=== PATIENT | male | born 1975 | race African-American/Black ===

== ENCOUNTER 2020-10-23 06:08 | Day surgery (SDC) | payer MEDICAID ==
[~2020-10-23] VITALS: Ht 180.3 cm; Wt 136.4 kg
[2020-10-23] MEDS ORDERED: ACETAMINOPHEN500 M1 PO (06:43)
[2020-10-23] MEDS ORDERED: NORVASC2.5 MG PO (06:44)
[2020-10-23] MEDS ORDERED: TENORMIN100 MG PO (06:45)
[2020-10-23] MEDS ORDERED: NORVASC10 MG PO (06:45)
[2020-10-23] MEDS ORDERED: BAYER CHEWABLE81 MG PO (06:45)
[2020-10-23] MEDS ORDERED: TUMS X-STR300 MG PO (06:46)
[2020-10-23] MEDS ORDERED: BENTYL 20 MG TA20 MG PO ×2 (06:47)
[2020-10-23] MEDS ORDERED: FERROUS SULFAT325 MG PO (06:48)
[2020-10-23] MEDS ORDERED: GLIPIZIDE10 MG PO (06:49)
[2020-10-23] MEDS ORDERED: COZAAR25 MG PO (06:50)
[2020-10-23] MEDS ORDERED: KEPPRA SOLU100 MG/ML PO (06:50)
[2020-10-23] MEDS ORDERED: GLUCOPHAGE1000 MG PO (06:50)
[2020-10-23] MEDS ORDERED: OMEPRAZOLE20 M1 PO (06:51)
[2020-10-23] MEDS ORDERED: NORTRIPTYLINE H50 MG PO (06:52)
[2020-10-23 07:03] LABS: ALBUMIN 3.8 g/dL (3.4-5.0); ANION GAP 17.6 mmol/L (8-16); BILIRUBIN - TOTAL 0.38 mg/dL (0.2-1.3); CALCIUM 9.3 mg/dL (8.5-10.1); CARBON DIOXIDE 21.3 mmol/L (21.0-32.0); CREATININE - SERUM 1.3 mg/dL (0.6-1.3); POTASSIUM - SERUM 3.9 mmol/L (3.5-5.1); PROTEIN - SERUM 8.2 g/dL (6.4-8.2)
[2020-10-23 07:05] VITALS: BP 125/86; Ht 180.3 cm; Wt 136.4 kg
[2020-10-23 07:11] LABS: BASOPHILS 0.4 % (0-2); EOSINOPHILS 2.2 % (0-7); HEMATOCRIT 42.2 % (42.0-54.0); HEMOGLOBIN 14.6 g/dL (13.5-17.5); IMMATURE GRANULOCYTES 0.2 % (0-5); LYMPHOCYTES 39.3 % (15-50); MCH 24.2 pg (26.0-34.0); MCHC 34.6 g/dL (31.0-37.0); MEAN PLATELET VOLUME 10.2 fL (7.4-10.4); NEUTROPHIL ABS# 2.35 10x3/uL (1.78-5.38); NEUTROPHILS 43.9 % (40-80); PLATELET COUNT 275 10x3/uL (130-400); RBC 6.03 10x6/uL (4.20-6.10); RDW 15.4 % (11.5-14.5); WBC 5.4 10x3/uL (4.8-10.8)
--- NOTE | 2020-10-23 12:01 | NUR ---
1153 AWAKE & ALERT. DRESSED. GIVEN DISCHARGE INFORMATION INCLUDING: MED REC., SHEET LISTING NSAIDS TO HOLD, & [facility] POST ENDOSCOPY D/C INSTRUCTIONS. COPIES OF LAB, H&P, PROGRESS NOTE SENT TO [facility]. PT VOICED UNDERSTANDING. TO [facility] VAN VIA WHEELCHAIR BY [facility] GUARDS X'S Ming CARRERA R.N.
--- NOTE | 2020-10-25 16:40 | HP ---
PATIENT: LINDY CAMPBELL MEDICAL RECORD: [id number] ACCOUNT: [id number] LOCATION:[facility] : 77 ADMISSION DATE: 10/23/20 PCP: No PCP HISTORY AND PHYSICAL EXAMINATION CHIEF COMPLAINT: He is here for endoscopy. HISTORY OF PRESENT ILLNESS: He was scheduled for lower endoscopy, but he has significant upper tract symptoms as well and would like to undergo an upper endoscopy. I think that is reasonable. The patient is on dicyclomine for irritable bowel syndrome. No history of Crohn disease. No history of ulcerative colitis. He does have a history of gastritis and at one time had Helicobacter pylori, which was treated with antibiotics. The patient has fecal occult blood positivity times 3. He has a history of diverticulitis. He has had a history of colon polyps as well and has had a polyp removed by Dr. Pierson in [place]. Currently not having any abdominal pain. He has a volume reflux and refluxes up into the back of his mouth at night. He has had no hematemesis. No dysphagia. He does have hematochezia. The risks, possible complications, alternatives of the procedure were explained to the patient. He elects to proceed. So we will plan on doing an upper endoscopy as well as a lower endoscopy on the patient. MEDICATIONS: [facility]. ALLERGIES: No known drug allergies. SOCIAL HISTORY: Nonsmoker. PAST MEDICAL AND SURGICAL HISTORY: Atrial fibrillation, hypertension, tol-[id number] diabetes mellitus. PHYSICAL EXAMINATION: GENERAL: The patient does not appear acutely ill. EARS: External ears appear normal. EYES: Extraocular movements are intact. NECK: Trachea is midline. CHEST: No intercostal retractions. PULMONARY: Nonlabored. No stridor. IMPRESSION: 1. History of gastritis. 2. History of Helicobacter pylori, in need of surveillance endoscopy to check for clearing of the Helicobacter pylori. 3. Gastroesophageal reflux. 4. History of colon polyps, in need of surveillance colonoscopy. 5. Fecal occult blood positivity. 6. Hematochezia. PLAN: Will be EGD with colonoscopy. TRANSINT:[id number] Voice Confirmation ID: [id number] DOCUMENT ID: [id number] HISTORY AND PHYSICAL [id number] LINDY CAMPBELL, KAE AMBROSE at [place] CC: [id number] DICTATION DATE: 10/23/20 0954 PIANO MOVER: 10/23/20 1041 [facility] 10/23/20 [facility] [address] [place] [address]
--- NOTE | 2020-10-25 16:40 | OP ---
PATIENT NAME: LINDY CAMPBELL MEDICAL RECORD: [id number] :77 LOCATION:D.OPS ADMISSION DATE: SURGEON: LEOPOLDO CLEMENTS MD DATE OF OPERATION: 10/23/2020 PREOPERATIVE DIAGNOSES: 1. Gastroesophageal reflux. 2. Irritable bowel syndrome. 3. History of H. pylori, in need of surveillance upper endoscopy to see if H. pylori has been eradicated. 4. Hematochezia. 5. History of colon polyps. POSTOPERATIVE DIAGNOSIS: 1. Gastroesophageal reflux. 2. Irritable bowel syndrome. 3. History of H. pylori, in need of surveillance upper endoscopy to see if H. pylori has been eradicated. 4. Hematochezia. 5. History of colon polyps. 6. Very large rectal veins leading to enlarged internal hemorrhoids, very likely the source of the patient's hematochezia. 7. Questionable flat polyp on the ileocecal valve. 8. Rectal polyp, sessile, 7-mm. 9. Pedunculated polyp, 1.4 cm. PROCEDURE: 1. Esophagogastroduodenoscopy with antral and distal esophageal biopsies. 2. Total colonoscopy to cecum. 3. Snare polypectomy x1. 4. Hot biopsy forceps polypectomies x2. SURGEON: Leopoldo Clements MD CORNER CUTTER MACHINE OPERATOR: None. BLOOD LOSS: Minimal. ANESTHESIA: IV sedation. COMPLICATIONS: None. The risks, possible complications, and alternatives to the procedure were explained to the patient. He elects to proceed. ENDOSCOPIC COURSE: The patient was conveyed to the endoscopy suite electively on 10/23/2020. IV sedation was induced by the anesthesia staff. A bite block was inserted. A gastroscope was inserted into the mouth. It was advanced easily into the hypopharynx. The esophagus was easily intubated as were the stomach and duodenum. Upon withdrawal, retroflexed and angulus views were obtained. Antral biopsies were obtained to check for H. pylori. Distal esophageal biopsies were obtained to check for Manuel's esophagus. The endoscope was then withdrawn under direct vision. The patient was turned 180 degrees and placed in the Cheung position. Digital OPERATIVE REPORT [id number] LINDY CAMPBELL rectal examination was performed. A colonoscope was inserted through the anus. It was easily advanced to the cecum. The prep was adequate. I withdrew the endoscope. The pullback was greater than 18-minute pullback. I dragged the folds. A combination of normal imaging and narrow band imaging were utilized. There was a flat lesion on the superior lip of the ileocecal valve and I am not sure if this represents a polyp or not. I did perform a hot biopsy forceps polypectomy procedure at this site. The polyp was about 1.8 cm in diameter. I continued to withdraw the endoscope. I identified a pedunculated polyp. This was removed in several pieces utilizing the snare polypectomy technique. Portions of the polyp were brought up through the polyp trap and portions were suctioned and brought out through the anus. I reintroduced the endoscope. There was no bleeding. There was a sessile polyp in the rectum, which was removed in its entirety utilizing the hot biopsy forceps polypectomy technique. A retroflex view was obtained in the rectum. I then unretroflexed the scope and removed it under direct vision. There is no need for the patient to follow up with me in the office unless he develops a complication related to this operative procedure. The patient would like to be placed back on dicyclomine for irritable bowel syndrome. He states that it was beneficial for him. I think that is likely a reasonable request. His next surveillance colonoscopy needs to take place in 3 years, which would be in September of 2023. If the patient needs a followup visit, we could do a telehealth visit or I could see the patient on one of my GI clinic days out at the [facility]. TRANSINT:[id number] Voice Confirmation ID: [id number] DOCUMENT ID: [id number] cc: Dr. Edda CLEMENTS, LEPOOLDO AMBROSE at 1640 CC: [id number] DICTATION DATE: 10/23/20 1125 BUTCHER HELPER: 10/23/20 1225 [facility] 10/23/20 [place] [address]
== END 2020-10-23 11:53 ==
LOC: D.OPS 06:08
PROVIDERS: Anesthesiology; ATTEND Surgery
DX: K21.9 Gastro-esophageal reflux disease without esophagitis (principal); K58.9 Irritable bowel syndrome, unspecified; K92.1 Melena; Z86.010 Personal history of colon polyps; K64.8 Other hemorrhoids; K63.5 Polyp of colon; K57.30 Diverticulosis of large intestine without perforation or abscess without bleeding; K29.70 Gastritis, unspecified, without bleeding